=== PATIENT | female | born 1985 | race Caucasian/White ===

== ENCOUNTER 2017-06-19 20:49 | Emergency (ER) | payer OTHER ==
--- OUTSIDE RECORDS SUMMARY | 2017-06-19 21:31 | XMS REPORT ---
:1985 External Reference #:[id number] Author Organization [facility] Address [address] [place] [address] Phone [phone] Care Team Providers Name Role Phone Debo Mendoza N.P. 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 Primary Care Physician Unavailable Payers Type Date Identification Numbers Payment Provider Subscriber Health Maintenance Policy Number: Salvador Hernández Organization (O) [id number] [employer] Number: [id number] [address] PayID: [id number] [place] [address] Problems Date Description Provider Status Onset: 09/28/2016 Essential hypertension Constantin Pfeiffer MD Active Family History Date Family Member(s) Problem(s) Comments General Essential Hypertension General Anxiety General CAD General Polycystic Ovaries Social History Type Date Description Comments Occupation [employer] Cigarette Use Former Cigarette Smoker 1-5 Cigarettes Daily Cigars Never Smoked Cigars Pipe Never Smoked A Pipe Smokeless Tobacco Never Used Smokeless Tobacco ETOH Use Denies alcohol use Smoking Patient is a former smoker Allergies, Adverse Reactions, Alerts Date Description Reaction Status Severity Comments 09/28/2016 NKDA active Medications Medication Date Status Form Strength Qnty SIG Indications Ordering Provider Mometasone Furoate 12/22 Active Cream 0.1% 15gm apply to Constantin /Golden ears twice Lazarus Pfeiffer, a day for 10 days as needed for itching Spironolactone Active Tablets 25mg 1 by mouth Reji, /0000 every day Debo Molina Metoprolol Active Tablets ER 25mg 1/2 by Reji, Succinate ER 0000 24HR mouth Debo every day N.P. Hydrochlorothiazid Active Tablets 25mg 1 by mouth Reji, e every day Debo N.P. Clotrimazole Active Cream 1% Reji, Debo N.P. Montelukast Sodium Active Tablets 10mg 1 by mouth Reji, / every day Debo N.P. Ventolin HFA Active Aerosol 108(90Bas Cathy, e) Clara mcg/Act M.D. Vitamin D Active Unknown Probiotic Active Capsules 1 by mouth Unknown every day Alprazolam Active Tablets 0.25mg Reji, Debo N.P. Clindamycin Active Cream 2% Reji, Debo N.P. Albuterol Sulfate Active Nebulizer (2.5mg/3M Inhale The L) 0.083% Contents Of 1 Vial Via Nebulizer Every 4 To 6 Hours as Need Fluocinonide Active Solution 0.05% Apply To Scalp Nightly For 1 Week Then as Needed For Itching. Vital Signs Date Vital Result Comment 06/15/2017 BP Systolic 133 mmHg BP Diastolic 91 mmHg Heart Rate 88 /min Respiratory Rate 17 /min Weight 185.00 lb Weight in kg's 83.916 Height 64 inches 5'4" Height in cm's 162.6 cm BMI (Body Mass Index) 31.8 kg/m2 09/29/2016 BP Systolic 125 mmHg BP Diastolic 73 mmHg Heart Rate 75 /min Respiratory Rate 16 /min Weight 190.00 lb Weight in kg's 86.184 Height 64 inches 5'4" Height in cm's 162.6 cm BMI (Body Mass Index) 32.6 kg/m2 Results Description No Information Procedures Date CPT Code Description Status 09/29/2016 01331 Nasal Endoscopy, Diagnostic Completed Encounters Type Date Location Provider CPT E/M Dx Office Visit 06/15/2017 9:00a [place],After 05/22/07 Constantin Pfeiffer, 95686 H61.21 H60.63 Office Visit 12/22/2016 1:30p [place],After 05/22/07 [place] [address] H92.01 G50.1 Office Visit 09/29/2016 10:00a [place],After 05/22/07 [place] [address] J32.0 H92.01 Plan of Care No Information Available
[2017-06-19] MEDS ORDERED: predniSONE TAB* 20 MG PO ONE (21:33)
[2017-06-19] MEDS ORDERED: diPHENhydraMINE PO* 25 MG PO ONE (21:33)
[2017-06-19 21:53] LABS: ABS Basophils 0.1 10^3/ul (0-0.2); ABS Eosinophils 0.4 10^3/ul (0-0.6); ABS Lymphocytes 1.8 10^3/ul (1.0-4.8); ABS Monocytes 0.4 10^3/ul (0-0.8); ABS Neutrophils 5.5 10^3/ul (1.5-7.7); ABS Nucleated RBC 0 10^3/ul; Hematocrit 41 % (35-47); Hemoglobin 14.4 g/dl (12.0-16.0); Lymphocyte % 22.1 % (25-47); Mean Corpuscular HGB Conc 35 g/dl (31-36); Mean Corpuscular Hemoglobin 31 pg (27-31); Mean Corpuscular Volume 89 fL (80-97); Mean Platelet Volume 8 um3 (7.4-10.4); Nucleated Red Blood Cells % 0.1; Platelet Count 258 10^3/ul (150-450); Red Blood Count 4.64 10^6/ul (4.0-5.4); Red Cell Distribution Width 12 % (10.5-15); White Blood Count 8.3 10^3/ul (3.5-10.8)
[2017-06-19 22:11] LABS: EGFR Non-African American 86.1 (>60)
[2017-06-19] MEDS ORDERED: Potassium Chlor TAB* 20 MEQ TAB.ER PO ONE (22:59)
[2017-06-19 23:17] VITALS: BP 103/74
--- NOTE | 2017-06-19 23:24 | ED ---
Estelle Chopra Thomas, scribed for Mohsen Le on 06/19/17 at 2149 . Allergic Reaction/Systemic - HPI Summary HPI Summary: This patient is a 31 year old F presenting to ED with a chief complaint of a swollen tongue since 1999 today. 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 The patient has a history of HTN and she takes metoprolol, spironolactone, and HCTZ. Symptoms aggravated and alleviated by nothing. Patient reports SOB and some CP. - History of Current Complaint Chief Complaint: EDAllergicReaction Time Seen by Provider: 06/19/17 21:21 Hx Obtained From: Patient Onset/Duration: Gradual Onset, Started hours ago, Still Present Timing: Lasting Hours Severity Currently: None Pain Intensity: 0 Pain Scale Used: 0-10 Numeric Character: Swelling - swollen tongue Aggravating Factor(s): Nothing Alleviating Factor(s): Nothing Associated Signs And Symptoms: Positive: Chest Pain, Other: - SOB - Allergies/Home Medications Allergies/Adverse Reactions: Allergies Allergy/AdvReac Type Severity Reaction Status Date / Time No Known Allergies Allergy Verified 06/19/17 20:53 PMH/Surg Hx/FS Hx/Imm Hx Cardiovascular History: Reports: Hx Hypertension Respiratory History: Reports: Hx Asthma - Surgical History Surgery Procedure, Year, and Place: [facility] Infectious Disease History: No Infectious Disease History: Denies: History Other Infectious Disease, Traveled Outside the [place] in Last 30 Days - Family History Known Family History: Positive: Hypertension - Social History Alcohol Use: Rare Substance Use Type: Reports: None Smoking Status (MU): Never Smoked Tobacco Review of Systems Positive: Other - swollen tongue Positive: Chest Pain Positive: Shortness Of Breath All Other Systems Reviewed And Are Negative: Yes Physical Exam - Summary Physical Exam Summary: Appearance: Well appearing, no pain distress Skin: warm, dry, reflects adequate perfusion Head/face: normal Eyes: EOMI, ERICK ENT: normal Neck: supple, non-tender Respiratory: CTA, breath sounds present Cardiovascular: RRR, pulses symmetrical Abdomen: non-tender, soft Bowel: present Musculoskeletal: normal, strength/ROM intact Neuro: normal, sensory motor intact, A&Ox3 Triage Information Reviewed: Yes Vital Signs On Initial Exam: Initial Vitals Temp Pulse Resp BP Pulse Ox 98.0 F 88 16 133/89 98 06/19/17 20:50 06/19/17 20:50 06/19/17 20:50 06/19/17 20:50 06/19/17 20:50 Vital Signs Reviewed: Yes Diagnostics - Vital Signs Vital Signs Temp Pulse Resp BP Pulse Ox 06/19/17 21:30 84 18 108/74 99 06/19/17 21:20 86 97 06/19/17 21:19 131/63 06/19/17 20:50 98.0 F 88 16 133/89 98 - Laboratory Lab Results: Lab Results 06/19/17 06/19/17 Range/Units 21:40 21:40 WBC 8.3 (3.5-10.8) 10^3/ul RBC 4.64 (4.0-5.4) 10^6/ul Hgb 14.4 (12.0-16.0) g/dl Hct 41 (35-47) % MCV 89 (80-97) fL MCH 31 (27-31) pg MCHC 35 (31-36) g/dl RDW 12 (10.5-15) % Plt Count 258 (150-450) 10^3/ul MPV 8 (7.4-10.4) um3 Neut % (Auto) 66.5 (38-83) % Lymph % (Auto) 22.1 L (25-47) % [place] % (Auto) 5.4 (1-9) % Eos % (Auto) 5.0 (0-6) % Baso % (Auto) 1.0 (0-2) % Absolute Neuts (auto) 5.5 (1.5-7.7) 10^3/ul Absolute Lymphs (auto) 1.8 (1.0-4.8) 10^3/ul Absolute Monos (auto) 0.4 (0-0.8) 10^3/ul Absolute Eos (auto) 0.4 (0-0.6) 10^3/ul Absolute Basos (auto) 0.1 (0-0.2) 10^3/ul Absolute Nucleated RBC 0 10^3/ul Nucleated RBC % 0.1 Sodium 136 (133-145) mmol/L Potassium 3.3 L (3.5-5.0) mmol/L Chloride 101 (101-111) mmol/L Carbon Dioxide 28 (22-32) mmol/L Anion Gap 7 (2-11) mmol/L BUN 9 (6-24) mg/dL Creatinine 0.78 (0.51-0.95) mg/dL Est GFR ( Amer) 110.8 (>60) Est GFR (Non-Af Amer) 86.1 (>60) BUN/Creatinine Ratio 11.5 (8-20) Glucose 112 H (70-100) mg/dL Calcium 9.5 (8.6-10.3) mg/dL Total Bilirubin 1.10 H (0.2-1.0) mg/dL AST 16 (13-39) U/L ALT 15 (7-52) U/L Alkaline Phosphatase 52 (34-104) U/L Troponin I 0.00 (<0.04) ng/mL Total Protein 6.5 (6.4-8.9) g/dL Albumin 4.2 (3.2-5.2) g/dL Globulin 2.3 (2-4) g/dL Albumin/Globulin Ratio 1.8 (1-3) Beta HCG, Quant < 0.60 mIU/mL Result Diagrams: 06/19/17 21:40 06/19/17 21:40 Lab Statement: Any lab studies that have been ordered have been reviewed, and results considered in the medical decision making process. - EKG 2106 Cardiac Rate: NL EKG Rhythm: Sinus Rhythm - 76 BPM EKG Interpretation: No acute changes. Allergic Reaction Course/Dx - Course Assessment/Plan: This patient is a 31 year old F presenting to ED with a chief complaint of a swollen tongue since 1999 today. Radiology included an EKG. In the ED course the patient was given Benadryl and Deltasone. Bloodwork was obtained.The patient is diagnosed with allergic reaction, HTN. The patient is instructed to follow up with primary care tomorrow for a medicine change.Patient is agreeable with this plan. - Diagnoses Differential Diagnosis/HQI/PQRI: Positive: Bronchospasm, Local Allergic Reaction , Other - allergic reaction Provider Diagnoses: Hypertension, Allergic reaction Discharge - Discharge Plan Condition: Stable Disposition: HOME Prescriptions: Diphenhydramine HCl [Benadryl Allergy 25 MG CAP] 25 mg PO TID #15 cap predniSONE TAB* [Deltasone TAB*] 40 mg PO DAILY #4 tab Patient Education Materials: Hypertension (ED), General Allergic Reaction (ED) Referrals: Debo Mendoza NP [Primary Care Provider] - 1 Day (Follow up with your PCP tomorrow for a medicine change. ) Additional Instructions: RETURN TO THE EMERGENCY DEPARTMENT FOR CHANGING OR WORSENING SYMPTOMS. The documentation as recorded by the Estelle rey Thomas accurately reflects the service I personally performed and the decisions made by , Mohsen Le.
== END 2017-06-19 23:30 | disposition home or self-care (01) ==
LOC: ED 20:49
DX: R22.0 Localized swelling, mass and lump, head (principal); T44.7X5A Adverse effect of beta-adrenoreceptor antagonists, initial encounter; Y92.9 Unspecified place or not applicable; I10 Essential (primary) hypertension
CPT/HCPCS: 36415; 80053; 84484; 84702; 85025; 93005; 99283; A9270-GY; J7512

== ENCOUNTER 2017-09-11 18:38 | Emergency (ER) | payer OTHER ==
[2017-09-11 18:43] VITALS: BP 117/76
--- OUTSIDE RECORDS SUMMARY | 2017-09-11 19:31 | XMS REPORT ---
:1985 External Reference #:[id number] Author Organization [facility] Address [address] [address] Phone [phone] Care Team Providers Name Role Phone Debo Mendoza N.P. Care Team Information Pediatric Occupational Therapist Unavailable Debo Mendoza N.P. Primary Care Physician Unavailable Payers Type Date Identification Numbers Payment Provider Subscriber Health Maintenance Policy Number: Salvador Hernández Organization (O) [id number] [employer] Number: [id number] [address] PayID: [id number] [place] [address] Problems Date Description Provider Status Onset: 09/28/2016 [...] Form Strength Qnty SIG Indications Ordering Provider Nystatin-Triamcino 08/31 Active Cream 468314-2. 30gm apply to Constantin 1Unit/GM- both ear Lazarus Pfeiffer, % canals MD twice a day for 10 days Mometasone Furoate 12/22 Active Cream 0.1% 15gm apply to ears twice Lazarus Pfeiffer, a day for MD 10 days as needed for itching Spironolactone Active Tablets 25mg 1 by mouth Reji, / every day Debo N.P. Metoprolol Active Tablets ER 25mg 1/2 by [...] Need Fluocinonide Active Solution 0.05% Apply To Unknown 0000 Scalp Nightly For 1 Week Then as [...] Procedures Date CPT Code Description Status 09/29/2016 39624 Nasal Endoscopy, Diagnostic Completed Encounters Type Date Location Provider CPT E/M Dx Office Visit 08/31/2017 10:30a [place],After 05/22/07 Constantin Pfeiffer, 78072 H60.63 Office Visit 06/15/2017 9:00a [place],After 05/22/07 Constantin Pfeiffer, [address]8417 H61.21 MD H60.63 Office Visit 12/22/2016 1:30p [place],After 05/22/07 [place] [address] H92.01 G50.1 Office Visit 09/29/2016 10:00a [place],After 05/22/07 [place] [address] J32.0 H92.01 Plan of Care No Information Available
--- OUTSIDE RECORDS SUMMARY | 2017-09-11 19:31 | XMS REPORT ---
:1985 External Reference #:[id number] Author Organization Formerly [facility] Address [address] [place] [address] Phone [phone] Care Team Providers Name Role Phone Crystal Santiago NP Care Team Information Sonography Technician Unavailable Payers Type Date Identification Numbers Payment Provider Subscriber Commercial Effective: Policy Number: [id number] Salvador Care-Man Elenita Cox 2016 Medicaid PayID: [id number] [address] [place] [id number] Problems Description No Information Family History Date Family Member(s) Problem(s) Comments Father Hypertension Mother Anxiety Mother CAD First Sister PCOS Social History Type Date Description Comments Lives With Male Partner Occupation [employer] Cigarette Use Former Cigarette Smoker 1-5 Cigarettes Daily ETOH Use Denies alcohol use Recreational Drug Use Denies Drug Use Allergies, Adverse Reactions, Alerts Date Description Reaction Status Severity Comments 02/22/2017 NKDA active Medications Medication Date Status Form Strength Qnty SIG Indications Ordering Provider Spironolactone 07/19 Active Tablets 25mg 30tab take 1 s tablet by severiano Santiago PROGRAMMING ENGINEER daily. Toprol XL 07/19 Active Tablets ER 25mg 90tab one tab I10 24HR s daily by severiano Santiago (do PROGRAMMING ENGINEER not fill with generic) Atenolol 06/22 Active Tablets 25mg 30tab 1/2 by Angel s mouth Heetderks every day , Clindamycin 06/14 Active Cream 2% 40gm 1 N76.0 Debo applicator bj Spear-Estrellita intravagin ally at bed time x 7 days Flovent HFA 03/08 Active Aerosol 110mcg/Ac 12uni inhale two J45.901 t ts puffs by Mcdaniel, mouth once M.D. a day Nebulizer 02/25 Active Device 1unit use to J45.Mally s administer Reji, albuterol BUSINESS DEVELOPMENT OFFICER-C Nebulizer 02/25 Active Kit 1unit use to Yong45.Mally Edmondson Kit/Tubing/Mouthp s deliver Reji iece albuterol BUSINESS DEVELOPMENT OFFICER-C via nebulizer four times a day Albuterol Sulfate 02/25 Active Nebulizer (2.5mg/3M 75uni inhale the J45.Mae1 L) 0.083% ts contents Reji, of 1 vial BUSINESS DEVELOPMENT OFFICER-C via nebulizer every 4 to 6 hours as needed for wheezing Fluticasone 02/13 Active Suspension 50mcg/Act 16gm nasal H65.01 Miriam spray- 2 P. sprays Blegen, each M.D. nostril every day as directed Proair HFA 10/21 Active Aerosol 108(90Bas 25.5g 2 puffs e) m every 4-6 Reji, mcg/Act hours as BUSINESS DEVELOPMENT OFFICER-C needed wheezing or shortness of breath Dulera 10/21 Active Aerosol 100-5mcg/ 8.800 2 puff Act gm twice a Reji, day BUSINESS DEVELOPMENT OFFICER-C Alprazolam 09/12 Active Tablets 0.25mg 60tab take one s tablet Reji, twice BUSINESS DEVELOPMENT OFFICER-C daily as needed for anxiety Hydrochlorothiazi 08/29 Active Tablets 25mg 60tab 1 by mouth s every day BEATRIS Santiago Montelukast 08/29 Active Tablets 10mg 30tab take one s tablet by Reji, mouth at BUSINESS DEVELOPMENT OFFICER-C bedtime Radha Allergy 08/29 Active Tablets 180mg 30tab 1 tablet s by mouth Reji, every day BUSINESS DEVELOPMENT OFFICER-C for allergies Toprol XL 06/20 Hx Tablets ER 25mg 90tab one tab I10 24HR s daily by Pamela, - mouth (do PROGRAMMING ENGINEER 06/22 not with generic) Metoprolol 06/19 Hx Tablets 25mg 30tab take one Miriam Tartrate s tablet by P. - mouth Blegen, 06/20 twice a M.D. day as directed Clobetasol 04/05 Hx Foam 0.05% 50uni apply a Debo Propionate ts Geolab-IT ball Reji, - sized BUSINESS DEVELOPMENT OFFICER-C 05/18 amount to scalp every night at bedtime for itching and dermatitis Mupirocin 03/31 Hx Ointment 2% 22uni apply a R21 ts small Reji, - amount to BUSINESS DEVELOPMENT OFFICER-C 05/18 affected area(s) twice daily Clobetasol 03/31 Hx Foam 0.05% 50uni apply a Propionate ts Geolab-IT ball Reji, - sized BUSINESS DEVELOPMENT OFFICER-C 04/05 amount to scalp every night at bedtime for itching and dermatitis Medrol 02/25 Hx Tablets 4mg 21tab 6 tabs J45.901 s today, 5 Reji, - tabs day2, BUSINESS DEVELOPMENT OFFICER-C 05/18 4 tabs day3, 3 tabs day4, 2 tab day 5, 1 tab day 6 Prednisone 02/22 Hx Tablets 20mg 20tab take 3 Angel s tabs by Archana - mouth x 3 , 02/25 days, 2 tabs by mouth x 3 days, then 1 tab by mouth x 3 days then 1/2 tab by mouth x 4 days Clindamycin 02/13 Hx Cream 2% 40gm one Miriam Phosphate applicator P. - into Blegen, 02/22 vaginal M.D. canal before bed for 7 days Anusol-HC 10/21 Hx Cream 2.5% 30gm apply to rectum two Reji, - times a BUSINESS DEVELOPMENT OFFICER-C 02/22 day for up to 2 weeks Spironolactone 08/29 Hx Tablets 25mg 30tab take 1 s tablet by Reji, - mouth BUSINESS DEVELOPMENT OFFICER-C 06/20 daily. Metoprolol 08/29 Hx Tablets ER 25mg 30tab 1 by mouth Angel Succinate 24HR s every day Archana Romero MD 06/19 Clotrimazole 08/29 Hx Cream 1% 30gm apply to B36.0 rash twice Reji, - a day BUSINESS DEVELOPMENT OFFICER-C 10/21 Cefuroxime Axetil 08/29 Hx Tablets 500mg 20tab one by H66.91 s mouth Reji, - twice a BUSINESS DEVELOPMENT OFFICER-C 09/12 day for days Immunizations CPT Code Status Date Vaccine Lot # [id number] Refused 06/07/2017 Influenza Virus Vaccine, Quadrivalent, 3 Yr > Quad, Preserv Free [id number] Refused 02/22/2017 Influenza Virus Vaccine, Quadrivalent, 3 Yr > [id number] Quad, Preserv Free [id number] Refused 10/21/2016 Influenza Virus Vaccine, Quadrivalent, 3 Yr > Quad, Preserv Free Vital Signs Date Vital Result Comment 08/25/2017 Weight 185.00 lb Weight in kg's 83.916 BP Systolic 118 mmHg BP Diastolic 80 mmHg Heart Rate 68 /min Body Temperature 98.6 F Respiratory Rate 16 /min O2 % BldC Oximetry 98 % 08/04/2017 Weight 191.25 lb Weight in kg's 86.751 BP Systolic 102 mmHg BP Diastolic 62 mmHg Heart Rate 68 /min Body Temperature 97.8 F Respiratory Rate 16 /min O2 % BldC Oximetry 98 % 06/22/2017 Weight 184.00 lb Weight in kg's 83.462 BP Systolic 108 mmHg BP Diastolic 70 mmHg Heart Rate 80 /min Body Temperature 97.4 F Respiratory Rate 20 /min O2 % BldC Oximetry 98 % 06/20/2017 Weight 181.00 lb Weight in kg's 82.102 BP Systolic 124 mmHg BP Diastolic 76 mmHg Heart Rate 80 /min Body Temperature 97.4 F Respiratory Rate 12 /min O2 % BldC Oximetry 98 % 06/14/2017 Weight 186.00 lb Weight in kg's 84.370 BP Systolic 92 mmHg BP Diastolic 62 mmHg Heart Rate 683 /min Body Temperature 97.0 F Respiratory Rate 16 /min O2 % BldC Oximetry 98 % 06/07/2017 Weight 190.00 lb Weight in kg's 86.184 BP Systolic 90 mmHg BP Diastolic 62 mmHg Heart Rate 60 /min Body Temperature 98.2 F O2 % BldC Oximetry 98 % 05/18/2017 Weight 187.00 lb Weight in kg's 84.823 BP Systolic 112 mmHg BP Diastolic 68 mmHg Heart Rate 76 /min Body Temperature 96.8 F Respiratory Rate 16 /min O2 % BldC Oximetry 98 % 03/31/2017 Weight 189.00 lb Weight in kg's 85.730 BP Systolic 100 mmHg BP Diastolic 72 mmHg Heart Rate 78 /min Body Temperature 14.0 F Respiratory Rate 14 /min O2 % BldC Oximetry 98 % 03/08/2017 Weight 185.00 lb Weight in kg's 83.916 BP Systolic 108 mmHg BP Diastolic 64 mmHg Heart Rate 88 /min Body Temperature 97.6 F Respiratory Rate 16 /min 02/25/2017 Weight 184.00 lb Weight in kg's 83.462 BP Systolic 110 mmHg BP Diastolic 74 mmHg Heart Rate 72 /min Body Temperature 97.5 F Respiratory Rate 18 /min O2 % BldC Oximetry 96 % 02/22/2017 Weight 184.00 lb Weight in kg's 83.462 BP Systolic 100 mmHg BP Diastolic 68 mmHg Heart Rate 84 /min Body Temperature 98.1 F Respiratory Rate 16 /min O2 % BldC Oximetry 97 % 02/13/2017 Weight 187.00 lb Weight in kg's 84.823 BP Systolic 120 mmHg BP Diastolic 70 mmHg Heart Rate 80 /min Body Temperature 97.1 F 10/21/2016 Weight 190.00 lb Weight in kg's 86.184 BP Systolic 103 mmHg BP Diastolic 78 mmHg Heart Rate 64 /min Body Temperature 97.8 F 09/12/2016 Weight 191.00 lb Weight in kg's 86.638 BP Systolic 118 mmHg BP Diastolic 82 mmHg Heart Rate 85 /min slight irreg Body Temperature 98.2 F Respiratory Rate 18 /min O2 % BldC Oximetry 99 % 08/29/2016 Weight 193.00 lb Weight in kg's 87.545 BP Systolic 97 mmHg BP Diastolic 65 mmHg Heart Rate 72 /min Height 64 inches 5'4" BMI (Body Mass Index) 33.1 kg/m2 Results Test Date Test Result H/L Range Note CBC Auto Diff 08/25/2017 White Blood Count 5.3 10^3/uL 3.5-10.8 Red Blood Count 4.96 10^6/uL 4.0-5.4 Hemoglobin 15.4 g/dL 12.0-16.0 Hematocrit 45 % 35-47 Mean Corpuscular Volume 90 fL 80-97 Mean Corpuscular Hemoglobin 31 pg 27-31 Mean Corpuscular HGB Conc 34 g/dL 31-36 Red Cell Distribution Width 13 % 10.5-15 Platelet Count 232 10^3/uL 150-450 Mean Platelet Volume 8.3 um3 7.4-10.4 Abs Neutrophils 3.7 10^3/uL 1.5-7.7 Abs Lymphocytes 1.1 10^3/uL 1.0-4.8 Abs Monocytes 0.3 10^3/uL 0-0.8 Abs Eosinophils 0.2 10^3/uL 0-0.6 Abs Basophils 0 10^3/uL 0-0.2 Abs Nucleated RBC 0 10^3/uL Granulocyte % 69.2 % 38-83 Lymphocyte % 20.3 % Low 25-47 Monocyte % 5.5 % 0-7 Eosinophil % 4.4 % 0-6 Basophil % 0.6 % 0-2 Nucleated Red Blood Cells % 0 Laboratory test finding 08/25/2017 Ferritin <pending> Vitamin B12 <pending> Vitamin D Total 25(Oh) <pending> CBC Auto Diff 06/19/2017 White Blood Count 8.3 10^3/uL 3.5-10.8 Red Blood Count 4.64 10^6/uL 4.0-5.4 Hemoglobin 14.4 g/dL 12.0-16.0 Hematocrit 41 % 35-47 Mean Corpuscular Volume 89 fL 80-97 Mean Corpuscular Hemoglobin 31 pg 27-31 Mean Corpuscular HGB Conc 35 g/dL 31-36 Red Cell Distribution Width 12 % 10.5-15 Platelet Count 258 10^3/uL 150-450 Mean Platelet Volume 8 um3 7.4-10.4 Abs Neutrophils 5.5 10^3/uL 1.5-7.7 Abs Lymphocytes 1.8 10^3/uL 1.0-4.8 Abs Monocytes 0.4 10^3/uL 0-0.8 Abs Eosinophils 0.4 10^3/uL 0-0.6 Abs Basophils 0.1 10^3/uL 0-0.2 Abs Nucleated RBC 0 10^3/uL Granulocyte % 66.5 % 38-83 Lymphocyte % 22.1 % Low 25-47 Monocyte % 5.4 % 1-9 Eosinophil % 5.0 % 0-6 Basophil % 1.0 % 0-2 Nucleated Red Blood Cells % 0.1 Comp Metabolic Panel 06/19/2017 Total Bilirubin 1.10 mg/dL High 0.2-1.0 Sodium 136 mmol/L 133-145 Potassium 3.3 mmol/L Low 3.5-5.0 Chloride 101 mmol/L 101-111 Co2 Carbon Dioxide 28 mmol/L 22-32 Anion Gap 7 mmol/L 2-11 Glucose 112 mg/dL High 70-100 Blood Urea Nitrogen 9 mg/dL 6-24 Creatinine 0.78 mg/dL 0.51-0.95 BUN/Creatinine Ratio 11.5 8-20 Calcium 9.5 mg/dL 8.6-10.3 Total Protein 6.5 g/dL 6.4-8.9 Albumin 4.2 g/dL 3.2-5.2 Globulin 2.3 g/dL 2-4 Albumin/Globulin Ratio 1.8 1-3 Alkaline Phosphatase 52 U/L 34-104 Alt 15 U/L 7-52 Ast 16 U/L 13-39 Egfr Non- 86.1 >60 Egfr 110.8 >60 1 Laboratory test finding 06/19/2017 Troponin-I (TnI) 0.00 ng/mL <0.04 HCG < 0.60 mIU/mL 2 Laboratory test finding 06/14/2017 Trichomonas Vaginalis Rna Negative Negative 3 GC/Chlamydia Amplified 06/14/2017 Chlamydia trachomatis Rna Negative Negative Rna Neisseria gonorrhoeae (GC) Rna Negative Negative Laboratory test 06/14/2017 Gardnerella/Yeast: Vaginal SEE RESULT BELOW 4 finding Dna Laboratory test 06/07/2017 Urine Culture And SEE RESULT BELOW 5 finding Sensitivities Urine DIP 06/07/2017 Leukocytes TRACE Neg Urine Nitrites NEG Neg Urobilinogen NORM Norm Total Protein, Urine NEG Neg Urine pH 8 High 5-6 Urine Blood TRACE Neg Specific Causey 1.000 Low 1.01-1.02 Urine Ketones NEG Neg Urine Bilirubin NEG Neg Urine Glucose NORM Norm Laboratory test finding 05/19/2017 Helico Pylori Antigen- Negative Negative 6, 7 Stool Liver Function Panel 05/10/2017 Total Protein 6.6 g/dL 6.4-8.9 Albumin 4.3 g/dL 3.2-5.2 Globulin 2.3 g/dL 2-4 Albumin/Globulin Ratio 1.9 1-3 Total Bilirubin 1.70 mg/dL High 0.2-1.0 Direct Bilirubin 0.30 mg/dL High 0.03-0.18 Indirect Bilirubin 1.4 mg/dL High 0.3-1.0 Alkaline Phosphatase 55 U/L 34-104 Alt 15 U/L 7-52 Ast 15 U/L 13-39 Liver Function Panel 03/29/2017 Total Protein 6.3 g/dL Low 6.4-8.9 Albumin 4.2 g/dL 3.2-5.2 Globulin 2.1 g/dL 2-4 Albumin/Globulin Ratio 2.0 1-3 Total Bilirubin 1.40 mg/dL High 0.2-1.0 Direct Bilirubin 0.20 mg/dL High 0.03-0.18 Indirect Bilirubin 1.2 mg/dL High 0.3-1.0 Alkaline Phosphatase 51 U/L 34-104 Alt 17 U/L 7-52 Ast 15 U/L 13-39 Basic Metabolic Panel 03/10/2017 Sodium 138 mmol/L 133-145 Potassium 4.0 mmol/L 3.5-5.0 Chloride 103 mmol/L 101-111 Co2 Carbon Dioxide 29 mmol/L 22-32 Anion Gap 6 mmol/L 2-11 Glucose 89 mg/dL 70-100 Blood Urea Nitrogen 8 mg/dL 6-24 Creatinine 0.83 mg/dL 0.51-0.95 BUN/Creatinine Ratio 9.6 8-20 Calcium 9.8 mg/dL 8.6-10.3 Egfr Non- 80.2 >60 Egfr 103.1 >60 8 CBC Auto Diff 03/10/2017 White Blood Count 5.3 10^3/uL 3.5-10.8 Red Blood Count 4.80 10^6/uL 4.0-5.4 Hemoglobin 14.9 g/dL 12.0-16.0 Hematocrit 43 % 35-47 Mean Corpuscular Volume 90 fL 80-97 Mean Corpuscular Hemoglobin 31 pg 27-31 Mean Corpuscular HGB Conc 35 g/dL 31-36 Red Cell Distribution Width 12 % 10.5-15 Platelet Count 264 10^3/uL 150-450 Mean Platelet Volume 8 um3 7.4-10.4 Abs Neutrophils 3.2 10^3/uL 1.5-7.7 Abs Lymphocytes 1.3 10^3/uL 1.0-4.8 Abs Monocytes 0.3 10^3/uL 0-0.8 Abs Eosinophils 0.4 10^3/uL 0-0.6 Abs Basophils 0 10^3/uL 0-0.2 Abs Nucleated RBC 0 10^3/uL Granulocyte % 60.4 % 38-83 Lymphocyte % 24.9 % Low 25-47 Monocyte % 6.2 % 1-9 Eosinophil % 7.8 % High 0-6 Basophil % 0.7 % 0-2 Nucleated Red Blood Cells % 0 Liver Function Panel 03/10/2017 Total Protein 6.5 g/dL 6.4-8.9 Albumin 4.2 g/dL 3.2-5.2 Globulin 2.3 g/dL 2-4 Albumin/Globulin Ratio 1.8 1-3 Total Bilirubin 2.40 mg/dL High 0.2-1.0 Direct Bilirubin 0.40 mg/dL High 0.03-0.18 Indirect Bilirubin 2.0 mg/dL High 0.3-1.0 Alkaline Phosphatase 58 U/L 34-104 Alt 16 U/L 7-52 Ast 15 U/L 13-39 Laboratory test finding 03/10/2017 Luteinizing Hormone 4.9 mcIU/mL 9 Vitamin B12 493 pg/mL 180-914 10 Zinc Level 0.84 g/mL 0.66-1.10 11 Vitamin E Level 7.8 mg/L 5.5 - 17.0 12 Testosterone Free & 03/10/2017 Free Testosterone ng/dl 0.30 ng/dL 0.06-1.03 13 Total Testosterone 16 ng/dL 8-60 14 Laboratory test finding 03/10/2017 Prolactin 16.9 ng/mL 1.0-25.0 Fractionated Estrogens 03/10/2017 Estrone (E1) 46 pg/mL 15 Estradiol (E2) 65 pg/mL 16 Urine DIP 02/13/2017 Leukocytes trace Neg Urine Nitrites neg Neg Urobilinogen neg Norm Total Protein, Urine neg Neg Urine pH 8.0 High 5-6 Urine Blood 250 High Neg Specific Causey 1.010 1.01-1.02 Urine Ketones neg Neg Urine Bilirubin neg Neg Urine Glucose norm Norm Laboratory test 02/13/2017 Gardnerella/Yeast: Vaginal SEE RESULT 17 finding Dna BELOW Comp Metabolic 08/29/2016 Sodium 137 mmol/L 133-145 Panel Potassium 3.9 mmol/L 3.5-5.0 Chloride 102 mmol/L 101-111 Co2 Carbon Dioxide 31 mmol/L 22-32 Anion Gap 4 mmol/L 2-11 Glucose 102 mg/dL High 70-100 Blood Urea Nitrogen 11 mg/dL 6-24 Creatinine 0.86 mg/dL 0.51-0.95 BUN/Creatinine Ratio 12.8 8-20 Calcium 9.7 mg/dL 8.6-10.3 Total Protein 7.1 g/dL 6.4-8.9 Albumin 4.6 g/dL 3.2-5.2 Globulin 2.5 g/dL 2-4 Albumin/Globulin Ratio 1.8 1-3 Total Bilirubin 1.20 mg/dL High 0.2-1.0 Alkaline Phosphatase 58 U/L 34-104 Alt 26 U/L 7-52 Ast 22 U/L 13-39 Egfr Non- 77.0 >60 Egfr 99.0 >60 18 CBC Auto Diff 08/29/2016 White Blood Count 6.4 10^3/uL 3.5-10.8 Red Blood Count 5.09 10^6/uL 4.0-5.4 Hemoglobin 15.8 g/dL 12.0-16.0 Hematocrit 46 % 35-47 Mean Corpuscular Volume 91 fL 80-97 Mean Corpuscular Hemoglobin 31 pg 27-31 Mean Corpuscular HGB Conc 34 g/dL 31-36 Red Cell Distribution Width 13 % 10.5-15 Platelet Count 255 10^3/uL 150-450 Mean Platelet Volume 8 um3 7.4-10.4 Abs Neutrophils 3.8 10^3/uL 1.5-7.7 Abs Lymphocytes 1.5 10^3/uL 1.0-4.8 Abs Monocytes 0.4 10^3/uL 0-0.8 Abs Eosinophils 0.6 10^3/uL 0-0.6 Abs Basophils 0.1 10^3/uL 0-0.2 Abs Nucleated RBC 0 10^3/uL Granulocyte % 59.0 % 38-83 Lymphocyte % 23.9 % Low 25-47 Monocyte % 6.4 % 1-9 Eosinophil % 9.8 % High 0-6 Basophil % 0.9 % 0-2 Nucleated Red Blood Cells % 0.1 Lipid Profile (Trig/Chol/HDL) 08/29/2016 Triglycerides 83 mg/dL 19 Cholesterol 173 mg/dL 20 HDL Cholesterol 47.2 mg/dL 21 LDL Cholesterol 109 mg/dL 22 Laboratory test finding 08/29/2016 Vitamin D Total 25(Oh) 30.2 ng/mL 30- 50 23 TSH (Thyroid Stim Horm) 2.08 mcIU/mL 0.34-5.60 24 T3 Total 0.94 ng/mL 0.87-1.78 25 Free T4 (Free Thyroxine) 0.97 ng/dL 0.61-1.12 26 1 Because ethnic data is not always readily available, this report includes an eGFR for both -Americans and non- Americans. The National Kidney Disease Education Program (NKDEP) does not endorse the use of the MDRD equation for patients that are not between the ages of 18 and 70, are , have extremes of body size, muscle mass, or nutritional status, or are non- or non-. According to the National Kidney Foundation, irrespective of diagnosis, the stage of the disease is based on the level of kidney function: Stage Description GFR(mL/min/1.73 m(2)) 1 Kidney damage with normal or decreased GFR 90 2 Kidney damage with mild decrease in GFR 60-89 3 Moderate decrease in GFR 30-59 4 Severe decrease in GFR 15-29 5 Kidney failure <15 (or dialysis) 2 <5.0 Negative 5.0 - 25.0 Indeterminate (Repeat testing recommended after 72 hours) >25.0 Positive Perimenopausal women can display HCG levels of up to 20 mIU/mL 3 [id number] GC/Chlamydia Source?: Endocervical Trichomonas Source: Endocervical 4 SEE RESULT BELOW Name: ELENITA COX : [address]: Debo Spear NP Acct: [id number] Unit: [id number] AGE: 31 Location: [facility] Re06/14/17 SEX: F Status: REG REF SPEC: [id number] MAEVE: 06/14/17-1111 [facility] DR: Debo Spear NP REQ: [id number] RECD: 06/14/17 STATUS: COMP _ SOURCE: VAGINAL SPDESC: ORDERED: [place],Yeast DNA COMMENTS: [id number] Procedure Result Reported Site Gardnerella/Yeast: Vaginal DNA Final 06/15/17- 1451 ML Organism 1 Negative Yaima Organism 2 POSITIVE GARDNERELLA The presence of G. vaginalis, although suggestive, is not diagnostic for bacterial vaginosis. Results should be interpreted in conjuction with other clinical and laboratory data available. Women with vaginal discharge should be evaluated for risk factors of cervicitis and pelvic inflammatory disease, toxic shock syndrome (S.aureus), and if present, evaluated for organisms not included in this assay such as N. gonorrhoeae, C. trachomatis, Mobiluncus, Mycoplasma and/or Prevotella. Mixed infections may occur. The performance of this test on patient specimens collected during or immediately after antimicrobial therapy is unknown. The presence or absence of Yaima species, or G. vaginalis cannot be used as a test for therapeutic success or failure. * ML - [facility] ([facility]) . END OF REPORT * ML=Testing performed at [facility] DEPARTMENT OF PATHOLOGY, [address] [place] [address] Reji Adams M.D. Director [facility] # [id number] 5 SEE RESULT BELOW Name: ELENITA COX : [address]: Debo Spear NP Acct: [id number] Unit: [id number] AGE: 31 Location: [facility] Re06/07/17 SEX: F Status: REG REF SPEC: [id number] MAEVE: 06/07/17-[address]: Debo Spear NP REQ: [id number] RECD: 06/07/17 STATUS: COMP _ SOURCE: URINE SPDES: ORDERED: Urine Culture COMMENTS: [id number] Urine Source: Random Procedure Result Reported Site Urine Culture Final 06/08/17- 1609 ML No growth of clinically significant organisms * ML - MA[facility] LAB ([facility]) . END OF REPORT * ML=Testing performed at Main Lab DEPARTMENT OF PATHOLOGY, [address] [place] [address] Reji Adams M.D. Director [facility] # [id number] Test Performed by: [address] [id number] 8 Because ethnic data is not always readily available, this report includes an eGFR for both -Americans and non- Americans. The National Kidney Disease Education Program (NKDEP) does not endorse the use of the MDRD equation for patients that are not between the ages of 18 and 70, are , have extremes of body size, muscle mass, or nutritional status, or are non- or non-. According to the National Kidney Foundation, irrespective of diagnosis, the stage of the disease is based on the level of kidney function: Stage Description GFR(mL/min/1.73 m(2)) 1 Kidney damage with normal or decreased GFR 90 2 Kidney damage with mild decrease in GFR 60-89 3 Moderate decrease in GFR 30-59 4 Severe decrease in GFR 15-29 5 Kidney failure <15 (or dialysis) 9 Normally menstruating females - Follicular Phase 1 - 18 - Mid-Cycle Peak 24 - 105 - Luteal Phase 0.6 - 20 Postmenopausal females 15 - 62 10 Normal Range 180 to 914 Indeterminate Range 145 to 180 Deficient Range <145 11 ADDITIONAL INFORMATION This test was developed and its performance characteristics determined by [facility] in a manner consistent with CLIA requirements. This test has not been cleared or approved by the U.S. Food and Drug Administration. Test Performed by: [facility] - [address] [address] 12 ADDITIONAL INFORMATION This test was developed and its performance characteristics determined by [facility] in a manner consistent with CLIA requirements. This test has not been cleared or approved by the U.S. Food and Drug Administration. Test Performed by: [facility] - [address] [address] 13 ADDITIONAL INFORMATION Testing performed by [facility]. This test was developed and its performance characteristics determined by [facility] in a manner consistent with CLIA requirements. This test has not been cleared or approved by the U.S. Food and Drug Administration. 14 ADDITIONAL INFORMATION Testing performed by Liquid Chromatography-Tandem Mass Spectrometry (LC-MS/MS). This test was developed and its performance characteristics determined by [facility] in a manner consistent with CLIA requirements. This test has not been cleared or approved by the U.S. Food and Drug Administration. Test Performed by: [facility] [address] [place] [id number] 15 REFERENCE VALUE Premenopausal :17-200 Postmenopausal : 7-40 ADDITIONAL INFORMATION This test was developed and its performance characteristics determined by [facility] in a manner consistent with CLIA requirements. This test has not been cleared or approved by the U.S. Food and Drug Administration. 16 REFERENCE VALUE Premenopausal: 15-350 (E2 levels vary widely through the menstrual cycle.) Postmenopausal: <10 ADDITIONAL INFORMATION This test was developed and its performance characteristics determined by [facility] in a manner consistent with CLIA requirements. This test has not been cleared or approved by the U.S. Food and Drug Administration. Test Performed by: [facility] [address] [place] [id number] 17 SEE RESULT BELOW Name: ELENITA COX : [address]: Miriam Sorensen MD Acct: [id number] Unit: [id number] AGE: 31 Location: [facility] Re02/13/17 SEX: F Status: REG REF SPEC: [id number] MAEVE: 02/13/17-[address]: Miriam Sorensen MD REQ: [id number] RECD: 02/13/17023 STATUS: COMP _ SOURCE: VAGINAL SPDESC: ORDERED: [place],Yeast DNA, Trich DNA COMMENTS: [id number] Procedure Result Reported Site Gardnerella/Yeast: Vaginal DNA Final 02/14/17- 1237 ML Organism 1 POSITIVE GARDNERELLA Organism 2 Negative Yaima The presence of G. vaginalis, although suggestive, is not diagnostic for bacterial vaginosis. Results should be interpreted in conjuction with other clinical and laboratory data available. Women with vaginal discharge should be evaluated for risk factors of cervicitis and pelvic inflammatory disease, toxic shock syndrome (S.aureus), and if present, evaluated for organisms not included in this assay such as N. gonorrhoeae, C. trachomatis, Mobiluncus, Mycoplasma and/or Prevotella. Mixed infections may occur. The performance of this test on patient specimens collected during or immediately after antimicrobial therapy is unknown. The presence or absence of Yaima species, or G. vaginalis cannot be used as a test for therapeutic success or failure. Trichomonas: Vaginal DNA Probe Final 02/14/17- 1237 ML Organism 1 Negative Trichomonas CONTINUED ON NEXT PAGE * ML=Testing performed at [facility] DEPARTMENT OF PATHOLOGY, [address] [place] [address] Reji Adams M.D. Director [facility] # [id number] Patient: ELENITA COX [id number] (Continued) Specimen: [id number] Collected: 02/13/17-1318 Received: 02/13/17-1744 (Continued) Procedure Result Reported Site Trichomonas: Vaginal DNA Probe Final (continued) 02/14/17- 1237 The presence or absence of T. vaginalis cannot be used as a test for therapeutic success or failure. * ML - [facility] [facility]) . END OF REPORT * ML=Testing performed at Main Lab DEPARTMENT OF PATHOLOGY, [address] [place] [address] Reji Adams M.D. Director [facility] # [id number] 18 Because ethnic data is not always readily available, this report includes an eGFR for both -Americans and non- Americans. The National Kidney Disease Education Program (NKDEP) does not endorse the use of the MDRD equation for patients that are not between the ages of 18 and 70, are , have extremes of body size, muscle mass, or nutritional status, or are non- or non-. According to the National Kidney Foundation, irrespective of diagnosis, the stage of the disease is based on the level of kidney function: Stage Description GFR(mL/min/1.73 m(2)) 1 Kidney damage with normal or decreased GFR 90 2 Kidney damage with mild decrease in GFR 60-89 3 Moderate decrease in GFR 30-59 4 Severe decrease in GFR 15-29 5 Kidney failure <15 (or dialysis) 19 Desirable <150 Borderline high 150-199 High 200-499 Very High >500 20 Desirable <200 Borderline high 200-239 High >239 21 Low <40 Desirable: 40-60 High: >60 22 Desirable: <100 mg/dL Near Optimal: 100-129 mg/dL Borderline High: 130-159 mg/dL High: 160-189 mg/dL Very High: >189 mg/dL 23 [id number] 24 [id number] 25 [id number] 26 [id number] Procedures Date CPT Code Description Status 02/25/2017 01922 Nebulizer Treatment Completed 02/22/2017 50328 Nebulizer Treatment Completed 09/12/2016 68632 EKG, at Least 12 Leads w/Interpretation and Report Completed Encounters Type Date Location Provider CPT E/M Dx Office Visit 08/04/2017 11:00a [place] [address] K30 Office Visit 06/22/2017 10:45a [place] [address] I10 Office Visit 06/20/2017 9:30a [place] [address] T88.7xxA Office Visit 06/14/2017 10:00a Main Office RAUL Viera 53363 N76.0 Office Visit 06/07/2017 3:15p Main Office RAUL Viera 65277 R31.9 Office Visit 05/18/2017 2:30p [place] [address] K30 Office Visit 03/31/2017 11:00a Main Office RAUL Viera 64564 R10.84 R21 Office Visit 03/08/2017 11:45a Main Office Kd Mcdaniel M.D. 79486 R10.84 J45.901 Office Visit 02/25/2017 11:45a Main Office [place] 83460 J45.901 Office Visit 02/22/2017 10:00a [place] [address] J45.901 Office Visit 02/13/2017 12:00p Main Office Miriam Sorensen M.D. 78305 N76.0 H65.01 R94.5 M79.604 Office Visit 10/21/2016 9:00a Main Office Debo Spear [facility] 673[address] K64.8 R06.2 Office Visit 09/12/2016 9:15a Main Office Debo Spear [facility] 27084 L65.8 E28.2 I10 M25.551 R00.2 Office Visit 08/29/2016 8:00a Main Office Debo Spear [facility] 96954 Z00.00 I10 R94.5 E55.9 F41.9 B36.0 H66.91 Plan of Care 08/25/2017 - Crystal Santiago, NPR11.2 Nausea with vomiting, unspecifiedComments :No acute concerns today.I suspected this is a resolving viral illness as BF is now ill, vomiting hasresolved, and abd pain is improving.I will obtained labs as fatigue could be caused by other issues.Patient reports she recently became a vegan and she has heavy periods. Discussed BRAT diet. Educatedon new/ worsening symptoms and when to call/return or seek immediate medical attentionPatient stated understanding and agrees to plan
--- NOTE | 2017-09-11 20:30 | RAD ---
Indication: Right hand pain. 4 views of the right hand are reviewed. There is no fracture or dislocation. No other bone or joint abnormality is noted. IMPRESSION: No fracture of the right hand is noted.
--- NOTE | 2017-09-11 20:45 | ED ---
Upper Extremity Pain - HPI Summary HPI Summary: 32-year-old female presents with right hand injury today.. She states she injured it this morning when she got her hand caught between 2 pieces of furniture. She has ecchymosis noted to her right index and ring finger. No wrist pain. No other injury. No numbness or tingling. States she went about her daily activities abut pain started to increase. States now she is having stiffness of the right ring finger. She denies any previous injury to the area. 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 She's been taking ibuprofen for pain. - History of Current Complaint Chief Complaint: EDExtremityUpper Stated Complaint: RT HAND INJURY Time Seen by Provider: 09/11/17 19:22 - Allergies/Home Medications Allergies/Adverse Reactions: Allergies Allergy/AdvReac Type Severity Reaction Status Date / Time No Known Allergies Allergy Verified 09/11/17 18:43 PMH/Surg Hx/FS Hx/Imm Hx Endocrine/Hematology History: Denies: Hx Anticoagulant Therapy Cardiovascular History: Reports: Hx Hypertension Respiratory History: Reports: Hx Asthma - Surgical History Surgery Procedure, Year, and Place: [facility] Infectious Disease History: No Infectious Disease History: Denies: History Other Infectious Disease, Traveled Outside the [place] in Last 30 Days - Family History Known Family History: Positive: Hypertension - Social History Alcohol Use: Rare Substance Use Type: Reports: None Smoking Status (MU): Never Smoked Tobacco Review of Systems Negative: Fever Negative: Chest Pain Negative: Shortness Of Breath Positive: Myalgia - right hand, Edema - right hand Positive: Bruising - right hand All Other Systems Reviewed And Are Negative: Yes Physical Exam Triage Information Reviewed: Yes Vital Signs On Initial Exam: Initial Vitals Temp Pulse Resp BP Pulse Ox 98.5 F 66 18 117/76 97 09/11/17 18:40 09/11/17 18:40 09/11/17 18:40 09/11/17 18:40 09/11/17 18:40 Vital Signs Reviewed: Yes Appearance: Positive: Well-Appearing Skin: Positive: Warm, Dry, Other - Ecchymosis of right index and ring finger at MCP Head/Face: Positive: Normal Head/Face Inspection Eyes: Positive: Normal, Conjunctiva Clear Respiratory/Lung Sounds: Positive: Clear to Auscultation, Breath Sounds Present Cardiovascular: Positive: Normal, RRR Musculoskeletal: Positive: Limited @ - right ring finger with pain, Edema Right - index and ring at MCP, Other - capilary Refill less than 2 seconds, and negative snuffbox tenderness, good pulses, tenderness over her MCP index and ring finger right Neurological: Positive: Normal Psychiatric: Positive: Normal Diagnostics - Vital Signs Vital Signs Temp Pulse Resp BP Pulse Ox 09/11/17 18:40 98.5 F 66 18 117/76 97 - Laboratory Lab Statement: Any lab studies that have been ordered have been reviewed, and results considered in the medical decision making process. - Radiology hand Xray Interpretation: No Acute Changes Radiology Interpretation Completed By: Radiologist Course/Dx - Course Course Of Treatment: 32-year-old female presents with right hand injury today.. She states she injured it this morning when she got her hand caught between 2 pieces of furniture. She has ecchymosis noted to her right index and ring finger. No wrist pain. No other injury. No numbness or tingling. States she went about her daily activities abut pain started to increase. States now she is having stiffness of the right ring finger. She denies any previous injury to the area. 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 She's been taking ibuprofen for pain. On exam has ecchymosis noted to the right ring and index finger. neurovascular intact. Has good strength of fingers with pain. No snuffbox tenderness. X-ray normal. Will treat as contusion with rice. Patient understands agrees with plan. - Diagnoses Differential Diagnosis/HQI/PQRI: Positive: Contusion, Fracture (Closed), Strain , Sprain Provider Diagnoses: Right hand pain Discharge - Sign-Out/Discharge Documenting (check all that apply): Discharge/Admit/Transfer - Discharge Plan Condition: Good Disposition: HOME Patient Education Materials: Contusion in Adults (ED) Referrals: Debo Mendoza NP [Primary Care Provider] - Ariana Dent MD [Medical Doctor] - Additional Instructions: Take Tylenol or ibuprofen every 6 hours as needed for pain Apply ice, rest, elevate Follow up with ortho if no improvement in a week Return to ED if develop any new or worsening symptoms - Billing Disposition and Condition Condition: GOOD Disposition: HOME
== END 2017-09-11 20:55 | disposition home or self-care (01) ==
LOC: ED 18:38
DX: M79.641 Pain in right hand (principal); I10 Essential (primary) hypertension; J45.909 Unspecified asthma, uncomplicated
CPT/HCPCS: 99282